=== PATIENT | female | born 1995 ===

== ENCOUNTER 2021-09-07 05:51 | Emergency (ER) | payer OTHER ==
[~2021-09-07] VITALS: Ht 162.6 cm; Wt 87.5 kg
[2021-09-07 07:49] VITALS: BP 106/68
[2021-09-07] MEDS ORDERED: IBUP800T27 PO (07:49)
[2021-09-07] MEDS ORDERED: CYCL-837 PO (07:49)
== END 2021-09-07 09:12 | disposition home or self-care (01) ==
LOC: ER 05:51
DX: S23.41XA Sprain of ribs, initial encounter (principal); Z79.1 Long term (current) use of non-steroidal anti-inflammatories (NSAID); Z79.899 Other long term (current) drug therapy; X50.1XXA Overexertion from prolonged static or awkward postures, initial encounter; Y93.89 Activity, other specified; Y92.89 Other specified places as the place of occurrence of the external cause; Y99.0 Civilian activity done for income or pay
CPT/HCPCS: 71101; 81025